=== PATIENT | female | born 1960 | race Caucasian/White ===

== ENCOUNTER 2021-06-18 02:33 | Emergency (ER) | payer MEDICARE, SELFPAY ==
[2021-06-18 02:39] VITALS: BP 199/132; PULSE 80; RESP 18; TEMP 36.1; O2SAT 93; BMI 18.1
--- NOTE | 2021-06-18 02:53 | CTR_ITS ---
PROCEDURE INFORMATION: Exam: CT Abdomen And Pelvis With Contrast Exam date and time: 06/18/2021 2:53 AM Age: 60 years old Clinical indication: Abdominal pain; Generalized; Patient HX: PT C/O abd and back pain. PT very hard of hearing to point of deafness. Breathing instructions explained as best as possible. ; Additional info: Abd pain TECHNIQUE: Imaging protocol: Computed tomography of the abdomen and pelvis with contrast. Radiation optimization: All CT scans at this facility use at least one of these dose optimization techniques: automated exposure control; mA and/or kV adjustment per patient size (includes targeted exams where dose is matched to clinical indication); or iterative reconstruction. Contrast material: VISI 320; Contrast volume: 75 ml; Contrast route: INTRAVENOUS (IV); COMPARISON: US Renal Kidney Structu* [id number] 01/20/2019 9:36 AM RADIATION DOSE METRICS: Total DLP (mGy-cm): 164.6 FINDINGS: Liver: Normal. No mass. Gallbladder and bile ducts: Normal. No calcified stones. No ductal dilation. Pancreas: Normal. No ductal dilation. Spleen: Normal. No splenomegaly. Adrenal glands: Normal. No mass. Kidneys and ureters: There is a 1.5 cm hypoattenuation cystic lesions seen posterior aspect of left kidney compatible a simple cyst. Stomach and bowel: Unremarkable. No obstruction. No mucosal thickening. Appendix: No evidence of appendicitis. Intraperitoneal space: Unremarkable. No free air. No significant fluid collection. Vasculature: Unremarkable. No abdominal aortic aneurysm. Lymph nodes: Unremarkable. No enlarged lymph nodes. Urinary bladder: Unremarkable as visualized. Reproductive: Unremarkable as visualized. Bones/joints: Unremarkable. No acute fracture. Soft tissues: Unremarkable. CT/CT abdomen pelvis w con* [id number] IMPRESSION: 1. There are no acute abdominal findings. 2. Benign 1.5 cm left renal cyst. No further workup needed. COMMENTS: Consistent with the [employer]'s Incidental Findings Committee white paper (J Am Sobeida Radiol 2018): Any incidental renal lesion less than 1 cm or classified as too small to characterize, or any incidental cystic renal lesion characterized as simple-appearing, is likely benign. No follow-up imaging is recommended for these lesions per consensus recommendations based on imaging criteria. Radiation Dose CTDIVOL = (mGy): DLP = 164.6 (mGy-cm)
--- NOTE | 2021-06-18 02:58 | W.ED.BACK ---
HPI - Back Pain/Injury General: Chief Complaint: Back Pain/Injury Stated Complaint: back pain Time Seen by Provider: 06/18/21 02:34 Source: patient Mode of arrival: ambulatory Limitations: no limitations History of Present Illness: HPI Narrative: 60-year-old female states she has had back pain over the last 9 to 10 days. States that her this point tender in her right thoracic region is made worse with bending and twisting. She states that it does radiate to her abdomen at times. She is quite hypertensive here. She states that she has not seen a physician in over 20 years and never takes her blood pressure and thinks that her blood pressure is likely chronically elevated. She denies any chest pain denies any vomiting or diarrhea. Associated symptoms: Deny abdominal pain, chills, dysuria, fever(s), nausea or vomiting Review of Systems Const: Denies: fever(s), chills, body aches or change in appetite Eyes: Denies: blurry vision or eye discomfort ENMT: Denies: throat pain or dental pain Card: Denies: chest pain Resp: Denies: dyspnea GI: Denies: abdominal pain, nausea, vomiting or diarrhea : Denies: dysuria Musc: Reports: back pain Skin/Breast: Denies: rash Neuro: Denies: headache(s) Psych: Denies: depression Adria/Lymph: Denies: easy bruising All/Imm: Denies: urticaria PFSH ED PFSH: Social History Second hand smoke exposure: No Smoking risk assessment/counseling performed?: Yes Alcohol intake: never Desire information about alcohol rehabilitation?: No Counseling given: No Desire information about substance/drug rehabilitation?: No Counseling given: No Adopted: No Caregiver/support person: No Lives independently: Yes Housing: House Marital status: Number of children: 2 Highest education level completed: High School Graduate service: No Current occupational status: disabled Physical Exam Const: COMMON NORMALS: no acute distress, patient oriented x3 and healthy appearing HENMT: COMMON NORMALS: normocephalic and atraumatic HEAD & SCALP: normocephalic and atraumatic Eye: COMMON NORMALS: Equal, round and reactive pupils present and EOMs intact bilaterally PUPIL: Yes Equal, round and reactive pupils present Neck/C-Spine: COMMON NORMALS: full ROM and supple Chest: COMMONS NORMALS: normal inspection of the chest and normal palpation of entire chest wall Resp: COMMON NORMALS: normal respiratory effort, No retractions, No use of accessory muscles and clear to auscultation bilaterally AUSCULTATION: clear to auscultation bilaterally Cardio: COMMON NORMALS: regular rate, regular rhythm and No murmurs present (Cardio) RATE: regular rate RHYTHM: regular rhythm GI: COMMON NORMALS: Normal to inspection, nondistended, normoactive bowel sounds present, Soft to palpation, non-tender and no masses PALPATION: Yes Soft to palpation Back/Pelvis: OTHER: tenderness over right thoracic region Extremity: COMMON NORMALS: normal to inspection and full ROM Neuro: COMMON NORMALS: patient oriented x3, moves all extremities and no focal motor deficits Psych: COMMON NORMALS: mental status grossly normal, Normal thought process present and cooperative THOUGHT PROCESS: Normal thought process present Skin: COMMON NORMALS: no rashes or lesions noted and no wounds GENERAL SKIN EXAM: no rashes or lesions noted Course Vital Signs: Vital signs: Vital Signs Temperature 97.0 F L 06/18/21 02:39 Pulse Rate 70 06/18/21 04:25 Respiratory Rate 16 06/18/21 04:25 Blood Pressure 189/123 06/18/21 04:25 Pulse Oximetry 93 06/18/21 04:25 MDM - Back Pain/Injury MDM Narrative: Medical decision making narrative: Patient presents here with back pain is likely muscular in nature. She is point tender thoracic region. Her blood work and abdominal CT here normal with no signs of intra-abdominal abnormality. She does have hypertension is likely chronic in nature and will start her on amlodipine. She is stable for discharge. She is to follow-up with PCP and return if worsening. Lab Data: Labs: Lab Results 06/18/21 06/18/21 Range/Units 03:15 03:15 WBC 9.3 (4.0-10.0) 10^3/ uL RBC 4.95 (4.1-5.3) 10^6/u L Hgb 14.4 (11.5-15.3) g/dL Hct 44.4 (37.0-47.0) % MCV 89.7 (81-99) fl MCH 29.1 (28.0-34.0) pg MCHC 32.4 (30.0-36.0) g/dL RDW 12.5 (12.1-15.1) % Plt Count 282 (130-400) 10^3/c mm MPV 10.3 (7.4-10.4) fL Neut % (Auto) 65.2 % Lymph % (Auto) 21.5 % [place] % (Auto) 8.3 % Eos % (Auto) 4.1 % Baso % (Auto) 0.5 % Neut # (Auto) 6.04 (1.8-7.7) 10^3/u L Lymph # (Auto) 2.0 (0.8-4.8) 10^3/u L [place] # (Auto) 0.8 (0.2-0.9) 10^3/u L Eos # (Auto) 0.4 (0.0-0.8) 10^3/u L Baso # (Auto) 0.1 (0.0-0.1) 10^3/u L Nucleated RBC % (a uto) 0 % Nucleated RBCs # 0.0 /100WBC Sodium 134 L (136-145) mmol/L Potassium 3.9 (3.5-5.1) mmol/L Chloride 96 L (98-107) mmol/L Carbon Dioxide 29 (22-29) mmol/L Anion Gap 12.9 (5-19) BUN 12 (8-23) mg/dL Creatinine 0.6 (0.5-0.9) mg/dL GFR Calculation 101.6 (90-130) mL/min Glucose 113 (65-115) mg/dL Calculated Osmolal ity 279 L (285-295) mOsm/k g Calcium 9.3 (8.5-10.5) mg/dL Total Bilirubin 0.3 (0.15-1.2) mg/dL AST 10 (0-32) U/L ALT 10 (0-33) U/L Alkaline Phosphata se 70 (35-105) IU/L Total Protein 6.3 L (6.6-8.7) g/dL Albumin 4.0 (3.5-5.2) g/dL Globulin 2.3 (1.3-4.6) g/dL Lipase 23 (13-60) U/L Imaging Data^: CT Abd/Pel: Attestation: I personally reviewed and interpreted this imaging study as follows: Radiologist's impression: [facility] [address] [place] [address] CT Scan Report Signed Patient: Shanti Santoyo Unit #: [id number] : 1960 Age/Sex: 60 / F ADM Date: 06/18/21 Loc: ER Room/Bed: Attending Dr: Ordering Provider/Ordering MD: rBandie Ren MD Date of Service: 06/18/21 Procedure(s): CT abdomen pelvis w con* [id number] Accession Number(s): [id number] Report Number: [id number] PROCEDURE INFORMATION: Exam: CT Abdomen And Pelvis With Contrast Exam date and time: 06/18/2021 2:53 AM Age: 60 years old Clinical indication: Abdominal pain; Generalized; Patient HX: PT C/O abd and back pain. PT very hard of hearing to point of deafness. Breathing instructions explained as best as possible. ; Additional info: Abd pain TECHNIQUE: Imaging protocol: Computed tomography of the abdomen and pelvis with contrast. Radiation optimization: All CT scans at this facility use at least one of these dose optimization techniques: automated exposure control; mA and/or kV adjustment per patient size (includes targeted exams where dose is matched to clinical indication); or iterative reconstruction. Contrast material: VISI 320; Contrast volume: 75 ml; Contrast route: INTRAVENOUS (IV); COMPARISON: US Renal Kidney Structu* [id number] 01/20/2019 9:36 AM RADIATION DOSE METRICS: Total DLP (mGy-cm): 164.6 FINDINGS: Liver: Normal. No mass. Gallbladder and bile ducts: Normal. No calcified stones. No ductal dilation. Pancreas: Normal. No ductal dilation. Spleen: Normal. No splenomegaly. Adrenal glands: Normal. No mass. Kidneys and ureters: There is a 1.5 cm hypoattenuation cystic lesions seen posterior aspect of left kidney compatible a simple cyst. Stomach and bowel: Unremarkable. No obstruction. No mucosal thickening. Appendix: No evidence of appendicitis. Intraperitoneal space: Unremarkable. No free air. No significant fluid collection. Vasculature: Unremarkable. No abdominal aortic aneurysm. Lymph nodes: Unremarkable. No enlarged lymph nodes. Urinary bladder: Unremarkable as visualized. Reproductive: Unremarkable as visualized. Bones/joints: Unremarkable. No acute fracture. Soft tissues: Unremarkable. CT/CT abdomen pelvis w con* [id number] IMPRESSION: 1. There are no acute abdominal findings. 2. Benign 1.5 cm left renal cyst. No further workup needed. COMMENTS: Consistent with the [employer]'s Incidental Findings Committee white paper (J Am Sobeida Radiol 2018): Any incidental renal lesion less than 1 cm or classified as too small to characterize, or any incidental cystic renal lesion characterized as simple-appearing, is likely benign. No follow-up imaging is recommended for these lesions per consensus recommendations based on imaging criteria. Radiation Dose CTDIVOL = (mGy): DLP = 164.6 (mGy-cm) Dictated By: Omero Walls MD Signed By: Omero Walls MD Signed Date/Time: 06/18/21444 DD/ 2 EKG Data^: EKG 1: Attestation: I personally reviewed and interpreted this EKG as follows: EKG interpretation date: 06/18/21 EKG interpretation time: 03:07 Interpretation: nsr hr [address] or t wave abnormalities qrs 101 qtc 376 Discharge Plan Discharge Patient Disposition: Home Clinical Impression: Hypertension Thoracic back pain Qualifiers: Chronicity: acute Back pain laterality: right Qualified Code(s): M54.6 - Pain in thoracic spine Condition: Stable Prescriptions: New amlodipine 5 mg tablet 5 mg PO BID Qty: 60 RF: 0 methocarbamol 750 mg tablet 750 mg PO Q6H PRN (Reason: spasms) Qty: 20 RF: 0 Naprosyn 500 mg tablet 500 mg PO BID PRN (Reason: pain) Qty: 20 RF: 0 No Action aspirin 81 mg tablet,delayed release (DR/EC) 81 mg PO DAILY RF: 0 doxycycline hyclate 100 mg capsule 100 mg PO BID 7 Days Qty: 14 RF: 0 prednisone 20 mg tablet 20 mg PO BID 5 Days Qty: 10 RF: 0 albuterol sulfate [ProAir HFA] 90 mcg/actuation HFA aerosol inhaler 2 puff inhalation QID PRN (Reason: shortness of breath or wheezing) Qty: 6.7 RF: 0 Discharge Orders: Discharge ED (Routine); Ordered 06/18/21 Ordered By: Korby Mikal Referrals: Katelin Bowman FNP-C [Primary Care Provider] - 1-3 days Discharge Diet: Advance as tolerated Discharge Activity: Resume usual activity Patient Instructions: Hypertension (ED), Back Pain (ED) Coding Level of Care Code ED Internet Sales Consultant for Chg Fwd Exam Comprehensive
[2021-06-18] MEDS: labetalol 5 mg/mL SDV 20mL 10 MG IVP (03:01)
--- NOTE | 2021-06-18 03:01 | ECG_ITS ---
[facility] Test Date: 2021-06-18 Pat Name: Shanti Santoyo Department: Room: Gender: Female Material Checker: : 1960 Requested By: Brandie Ren Order Number: [id number] Chani MD: Haseeb Slaughter M.D. Measurements Intervals [place] Rate: 67 P: 79 IL: 148 QRS: 66 QRSD: 101 T: 69 QT: 360 QTc: 382 Interpretive Statements SINUS RHYTHM POSSIBLE RIGHT ATRIAL ENLARGEMENT [0.25mV P-WAVE] NONSPECIFIC T-WAVE ABNORMALITY No previous ECG available for comparison Electronically Signed On 06-18-2021 16:12:53 CDT by Haseeb Slaughter M.D. [id number] f
[2021-06-18 03:08] VITALS: BP 150/108; PULSE 92; RESP 16; O2SAT 94
[2021-06-18 03:21] LABS: Basophils # 0.1 10^3/uL (0.0-0.1); Basophils % 0.5 %; Eosinophils # 0.4 10^3/uL (0.0-0.8); Eosinophils % 4.1 %; Hematocrit 44.4 % (37.0-47.0); Hemoglobin 14.4 g/dL (11.5-15.3); Lymphocytes % 21.5 %; Mean Corpuscular HGB Conc 32.4 g/dL (30.0-36.0); Mean Corpuscular Hemoglobin 29.1 pg (28.0-34.0); Mean Corpuscular Volume 89.7 fl (81-99); Mean Platelet Volume 10.3 fL (7.4-10.4); Monocytes # 0.8 10^3/uL (0.2-0.9); Monocytes % 8.3 %; Neutrophils # 6.04 10^3/uL (1.8-7.7); Neutrophils % 65.2 %; Nucleated Red Blood Cells % 0 %; Platelet Count 282 10^3/cmm (130-400); Red Blood Count 4.95 10^6/uL (4.1-5.3); Red Cell Distribution Width 12.5 % (12.1-15.1); White Blood Count 9.3 10^3/uL (4.0-10.0)
[2021-06-18 03:46] LABS: Alanine Aminotransferase 10 U/L (0-33); Alkaline Phosphatase 70 IU/L (35-105); Anion Gap 12.9 (5-19); Aspartate Amino Transferase 10 U/L (0-32); Blood Urea Nitrogen 12 mg/dL (8-23); Calcium 9.3 mg/dL (8.5-10.5); Carbon Dioxide 29 mmol/L (22-29); Chloride 96 mmol/L (98-107); Globulin 2.3 g/dL (1.3-4.6); Glomerular Filtration Rate 101.6 mL/min (90-130); Glucose 113 mg/dL (65-115); Lipase 23 U/L (13-60); Osmolality Calculated 279 mOsm/kg (285-295); Potassium 3.9 mmol/L (3.5-5.1); Sodium 134 mmol/L (136-145); Total Bilirubin 0.3 mg/dL (0.15-1.2); Total Protein 6.3 g/dL (6.6-8.7)
[2021-06-18] MEDS: iodixanol 320 mg/mL 100mL Btl IV (04:20)
[2021-06-18 04:25] VITALS: BP 189/123; PULSE 70; RESP 16; O2SAT 93
[2021-06-18] MEDS: hyDRALAzine 20 mg/mL INJ 1 mL 10 MG IVP (04:47)
[2021-06-18 05:07] VITALS: BP 157/100; PULSE 74; RESP 18; O2SAT 94
== END 2021-06-18 05:08 | disposition home or self-care (01) ==
PROVIDERS: Emergency Provider Emergency Medicine; PCP Nurse Practitioner Family
DX: M54.6 Pain in thoracic spine (principal); I10 Essential (primary) hypertension; Z79.82 Long term (current) use of aspirin; Z77.22 Contact with and (suspected) exposure to environmental tobacco smoke (acute) (chronic)
CPT/HCPCS: 74177; 80053; 83690; 85025; 93005; 96374; 96375; 99283; J0360; J3490; Q9967

== ENCOUNTER 2023-03-04 00:33 | Emergency (ER) | payer MEDICARE, MEDICAID, SELFPAY ==
[2023-03-04 00:36] VITALS: BP 175/106; PULSE 72; RESP 18; TEMP 36.6; O2SAT 86; BMI 19.3
--- NOTE | 2023-03-04 00:44 | ED_ITS ---
HPI - Abdominal Pain General: Chief Complaint: Abdominal Pain Stated Complaint: ABD PAIN Time Seen by Provider: 03/04/23 00:37 Source: EMS Mode of arrival: EMS Limitations: no limitations History of Present Illness: Patient presents to the emergency department today brought by EMS for evaluation treatment of complaints of right-sided abdominal pain. EMS provides most of the history indicating the patient told them that at 9:00 this evening, she developed sudden onset right-sided abdominal pain. She has been urinating and passing stool without difficulty over the last few days. She has not had fevers. Patient was feeling nauseated but, was administered Phenergan by EMS and indicated significant improvement of her discomfort. Patient was found to be in the upper 80s on room air but, oxygen has come up with O2 by nasal cannula. Patient indicated she does still have her gallbladder and does still have an appendix. Review of Systems 2 General: Reports: 10 or more systems reviewed and unremarkable except in HPI and below PFSH ED PFSH: Social History Smoking and tobacco status: current every day smoker Second hand smoke exposure: No Smoking risk assessment/counseling performed?: Yes Alcohol intake: never Desire information about alcohol rehabilitation?: No Counseling given: No Substance/Drug Use: never Desire information about substance/drug rehabilitation?: No Counseling given: No Adopted: No Caregiver/support person: No Lives independently: Yes Housing: House Marital status: Number of children: 2 Highest education level completed: High School Graduate service: No Current occupational status: disabled Physical Exam 2 Const: COMMON NORMALS: no acute distress, patient oriented x3 and alert HENMT: COMMON NORMALS: normocephalic, atraumatic and moist oral mucous membranes HEAD & SCALP: normocephalic and atraumatic OTHER: Patient is hard of hearing. Eye: COMMON NORMALS: Equal, round and reactive pupils present, EOMs intact bilaterally and conjunctivae normal CONJUNCTIVA: Yes conjunctivae normal PUPIL: Yes Equal, round and reactive pupils present Neck/C-Spine: COMMON NORMALS: full ROM and no JVD Lymph: LYMPHATIC: no lymphadenopathy noted Resp: COMMON NORMALS: normal respiratory effort, No retractions, No use of accessory muscles and clear to auscultation bilaterally AUSCULTATION: clear to auscultation bilaterally Cardio: COMMON NORMALS: no JVD, regular rate and regular rhythm RATE: regular rate RHYTHM: regular rhythm GI: OTHER: Diminished bowel sounds throughout. Patient abdomen is soft. No specific tenderness on palpation but, patient can indicate point specific area to the right lateral region of her abdomen as tender. : COMMON NORMALS: Yes no CVA tenderness BLADDER/KIDNEY EXAM: Yes no CVA tenderness Back/Pelvis: COMMON NORMALS: no CVA tenderness, no thoracic nor lumbar tenderness and thoraco-lumbar ROM normal Extremity: COMMON NORMALS: normal to inspection, full ROM and capillary refill normal Neuro: COMMON NORMALS: patient oriented x3 SENSORIUM/ORIENTATION: Yes alert Psych: COMMON NORMALS: mental status grossly normal, Normal thought process present, cooperative, normal affect and activity/motor behavior normal THOUGHT PROCESS: Normal thought process present Skin: COMMON NORMALS: no rashes or lesions noted and no wounds GENERAL SKIN EXAM: no rashes or lesions noted Course Vital Signs: Vital signs: Vital Signs Temperature 97.8 F 03/04/23 00:36 Pulse Rate 67 03/04/23 01:07 Respiratory Rate 16 03/04/23 01:37 Blood Pressure 166/94 03/04/23 01:37 Pulse Oximetry 97 03/04/23 01:37 Oxygen Delivery Me thod Nasal Cannula 03/04/23 01:37 Oxygen Flow Rate 3 03/04/23 01:37 MDM - Abdominal Pain Medical Decision Making Patient presents to the emergency department today brought by EMS for concerns of right-sided abdominal pain which seem to start rather suddenly this evening. Patient has not had any vomiting but has had nausea which she indicated Phenergan from EMS had helped the nausea. She has not been febrile and denies diarrhea. She has not had any issues with urination. Patient's lab evaluation revealed no signs of an elevated white blood cell count. Patient seems well- hydrated and urinalysis reveals no signs of infection. Due to this negative work-up I did proceed on with the basic KUB which indicated a large accumulation of stool on the right ascending colon. I discussed this finding with the patient and her son and explained I have prescribed MiraLAX to help facilitate passing of this stool burden. Patient should notice improvement after passing stool. However, patient continues to have pain, vomiting, or any signs of new onset fever, she is to be seen and reevaluated. Both patient and son verbalized understanding and agreement to treatment plan. Differential Diagnosis Likely abdominal pain, acute appendicitis, calculus of kidney, constipation, diverticulitis, gastroenteritis and small bowel obstruction Lab Data 03/04/23 00:42 06 00:42 Labs/Radiology: Laboratory Results WBC 8.9 10^3/uL (4.0-10.0) 03/04/23 00:42 RBC 4.89 10^6/uL (4.1-5.3) 03/04/23 00:42 Hgb 13.9 g/dL (11.5-15.3) 03/04/23 00:42 Hct 44.7 % (37.0-47.0) 03/04/23 00:42 MCV 91.4 fl (81-99) 03/04/23 00:42 MCH 28.4 pg (28.0-34.0) 03/04/23 00:42 MCHC 31.1 g/dL (30.0-36.0) 03/04/23 00:42 RDW 12.3 % (12.1-15.1) 03/04/23 00:42 Plt Count 241 10^3/cmm (130-400) 03/04/23 00:42 MPV 10.5 fL (7.4-10.4) H 03/04/23 00:42 Neut % (Auto) 71.1 % 03/04/23 00:42 Lymph % (Auto) 17.7 % 03/04/23 00:42 [place] % (Auto) 7.6 % 03/04/23 00:42 Eos % (Auto) 2.8 % 03/04/23 00:42 Baso % (Auto) 0.6 % 03/04/23 00:42 Neut # (Auto) 6.31 10^3/uL (1.8-7.7) 03/04/23 00:42 Lymph # (Auto) 1.6 10^3/uL (0.8-4.8) 03/04/23 00:42 [place] # (Auto) 0.7 10^3/uL (0.2-0.9) 03/04/23 00:42 Eos # (Auto) 0.3 10^3/uL (0.0-0.8) 03/04/23 00:42 Baso # (Auto) 0.1 10^3/uL (0.0-0.1) 03/04/23 00:42 Nucleated RBC % (auto) 0 % 03/04/23 00:42 Nucleated RBCs # 0.0 /100WBC 03/04/23 00:42 ESR 12 mm/hr (0-15) 03/04/23 00:42 Sodium 140 mmol/L (136-145) 03/04/23 00:42 Potassium 3.7 mmol/L (3.5-5.1) 03/04/23 00:42 Chloride 99 mmol/L (98-107) 03/04/23 00:42 Carbon Dioxide 32 mmol/L (22-29) H 03/04/23 00:42 Anion Gap 12.7 (5-19) 03/04/23 00:42 BUN 16 mg/dL (8-23) 03/04/23 00:42 Creatinine 0.4 mg/dL (0.5-0.9) L 03/04/23 00:42 GFR Calculation 161.2 mL/min (90-130) H 03/04/23 00:42 Glucose 103 mg/dL (65-115) 03/04/23 00:42 Calculated Osmolality 291 mOsm/kg (285-295) 03/04/23 00:42 Calcium 9.0 mg/dL (8.5-10.5) 03/04/23 00:42 Total Bilirubin 0.3 mg/dL (0.15-1.2) 03/04/23 00:42 AST 14 U/L (0-32) 03/04/23 00:42 ALT 9 U/L (0-33) 03/04/23 00:42 Alkaline Phosphatase 61 U/L (35-105) 03/04/23 00:42 C-Reactive Protein 6.4 mg/L (0.0-4.9) H 03/04/23 00:42 Total Protein 6.9 g/dL (6.6-8.7) 03/04/23 00:42 Albumin 4.2 g/dL (3.5-5.2) 03/04/23 00:42 Globulin 2.7 g/dL (1.3-4.6) 03/04/23 00:42 Lipase 20 U/L (13-60) 03/04/23 00:42 Urine Color Yellow (Yellow) 03/04/23 01:15 Urine Appearance Clear (CLEAR) 03/04/23 01:15 Urine pH 8 (5-7) H 03/04/23 01:15 Ur Specific [place] 1.010 (1.005-1.030) 03/04/23 01:15 Urine Protein Neg (Negative) 03/04/23 01:15 Urine Glucose (UA) Norm (Normal) 03/04/23 01:15 Urine Ketones Negative (Negative) 03/04/23 01:15 Urine Blood Neg (Negative) 03/04/23 01:15 Urine Nitrate Negative (Negative) 03/04/23 01:15 Urine Bilirubin Neg (Negative) 03/04/23 01:15 Prot Sulfosalicylic Acd Negative (Negative) 03/04/23 01:15 Urine Urobilinogen Norm mg/dL (Negative) 03/04/23 01:15 Ur Leukocyte Esterase Negative (Negative) 03/04/23 01:15 Discharge Plan Discharge Patient Disposition: Home Clinical Impression: Constipation Condition: Stable Prescriptions: New Miralax 17 gram/dose powder 17 g PO DAILY Qty: 238 0RF No Action aspirin 81 mg tablet,delayed release (DR/EC) 81 mg PO DAILY albuterol sulfate [ProAir HFA] 90 mcg/actuation HFA aerosol inhaler 2 puff inhalation QID PRN (Reason: shortness of breath or wheezing) Qty: 6.7 0RF amoxicillin 875 mg tablet 875 mg PO BID Qty: 20 0RF fluoxetine 10 mg capsule 10 mg PO DAILY Qty: 30 5RF amlodipine 5 mg tablet 5 mg PO BID Qty: 60 0RF methocarbamol 750 mg tablet 750 mg PO Q6H PRN (Reason: spasms) Qty: 20 0RF Naprosyn 500 mg tablet 500 mg PO BID PRN (Reason: pain) Qty: 20 0RF Discharge Orders: Discharge ED (Routine); Ordered 03/04/23 Ordered By: Tara Barraza Referrals: Katelin Bowman FNP-C [Primary Care Provider] - Discharge Diet: As Directed Discharge Activity: Increase activity as tolerated Patient Instructions: Constipation (ED), High Fiber Diet (ED) Activity Restrictions/Additional Instructions: Lab work today showed no acute concerns for signs of an abdominal infection. You show no signs of any urinary infection and no other acute cause for concern today. The x-ray in your abdomen confirms a large amount of stool in the right side of your colon. This accumulation of stool can often cause a lot of pain- especially if there is gas trapped in the area as well. I have prescribed you some MiraLAX which I would like you to start taking at least 1-2 doses daily until you are able to have bowel movements and relief of your abdominal dis comfort. Increase your clear fluid intake during this time as well. Follow-up with your primary care doctor next week for recheck. Return to the emergency department if you develop fevers, vomiting without ability to tolerate fluid or medications. Coding Level of Care Code ED Drapery Inspector for Sergey Green
[2023-03-04 00:51] LABS: Basophils # 0.1 10^3/uL (0.0-0.1); Basophils % 0.6 %; Eosinophils # 0.3 10^3/uL (0.0-0.8); Eosinophils % 2.8 %; Hematocrit 44.7 % (37.0-47.0); Hemoglobin 13.9 g/dL (11.5-15.3); Lymphocytes # 1.6 10^3/uL (0.8-4.8); Lymphocytes % 17.7 %; Mean Corpuscular HGB Conc 31.1 g/dL (30.0-36.0); Mean Corpuscular Hemoglobin 28.4 pg (28.0-34.0); Mean Corpuscular Volume 91.4 fl (81-99); Mean Platelet Volume 10.5 fL (7.4-10.4); Monocytes # 0.7 10^3/uL (0.2-0.9); Monocytes % 7.6 %; Neutrophils # 6.31 10^3/uL (1.8-7.7); Neutrophils % 71.1 %; Nucleated Red Blood Cells % 0 %; Platelet Count 241 10^3/cmm (130-400); Red Blood Count 4.89 10^6/uL (4.1-5.3); Red Cell Distribution Width 12.3 % (12.1-15.1); White Blood Count 8.9 10^3/uL (4.0-10.0)
[2023-03-04 00:53] LABS: Erythrocyte Sedimentation Rate 12 mm/hr (0-15)
[2023-03-04 01:04] LABS: Alanine Aminotransferase 9 U/L (0-33); Albumin Level 4.2 g/dL (3.5-5.2); Alkaline Phosphatase 61 U/L (35-105); Anion Gap 12.7 (5-19); Aspartate Amino Transferase 14 U/L (0-32); Blood Urea Nitrogen 16 mg/dL (8-23); C Reactive Protein 6.4 mg/L (0.0-4.9); Carbon Dioxide 32 mmol/L (22-29); Chloride 99 mmol/L (98-107); Globulin 2.7 g/dL (1.3-4.6); Glomerular Filtration Rate 161.2 mL/min (90-130); Glucose 103 mg/dL (65-115); Lipase 20 U/L (13-60); Osmolality Calculated 291 mOsm/kg (285-295); Potassium 3.7 mmol/L (3.5-5.1); Sodium 140 mmol/L (136-145); Total Bilirubin 0.3 mg/dL (0.15-1.2); Total Protein 6.9 g/dL (6.6-8.7)
[2023-03-04 01:07] VITALS: BP 169/90; PULSE 67; RESP 16; O2SAT 97
[2023-03-04 01:23] LABS: Add Urine Microscopic? NO; Charge for UA Resulting for Rev
[2023-03-04 01:28] LABS: Bilirubin Urine Neg (Negative); Blood Urine Neg (Negative); Glucose Urine UA Norm (Normal); Ketones Urine Negative (Negative); Leukocyte Esterase Urine Negative (Negative); Nitrate Urine Negative (Negative); Protein Urine Neg (Negative); Sulfosalicylic Acid Urine Negative (Negative); Urine Appearance Clear (CLEAR); Urine Color Yellow (Yellow); Urobilinogen Urine Norm (Negative); pH Urine 8 (5-7)
--- NOTE | 2023-03-04 01:34 | XRR_ITS ---
PROCEDURE INFORMATION: Exam: XR Abdomen Exam date and time: 03/04/2023 1:40 AM Age: 62 years old Clinical indication: Abdominal pain; Localized; Right; Patient HX: RT sided abd pain; Additional info: RT abdominal pain, no fever, no wbc, no UTI TECHNIQUE: Imaging protocol: Radiologic exam of the abdomen. Views: Frontal supine view of the abdomen. 1 View. Total images: 217 COMPARISON: CT abdomen pelvis w con* [id number] 06/18/2021 3:54 AM FINDINGS: Gastrointestinal tract: Bowel gas pattern is nondistended and nonobstructive. Bones/joints: Unremarkable. Other findings: Moderate stool burden. XR/XR KUB [id number] IMPRESSION: 1. Normal bowel gas pattern 2. Moderate stool burden.
[2023-03-04 01:37] VITALS: BP 166/94; RESP 16; O2SAT 97
[2023-03-04 02:19] VITALS: BP 166/94; PULSE 71; RESP 16; TEMP 36.6; O2SAT 97
== END 2023-03-04 02:20 | disposition home or self-care (01) ==
PROVIDERS: Emergency Provider Physician Assistant; PCP Nurse Practitioner Family
DX: K59.00 Constipation, unspecified (principal)
CPT/HCPCS: 74018; 80053; 81003; 83690; 85025; 85651; 86140; 99284

== ENCOUNTER → 2023-03-21 14:30 | Outpatient (BNVA) | payer MEDICARE, MEDICAID, SELFPAY | PROVIDERS: PCP Nurse Practitioner Family; Visit Provider Nurse Practitioner Family | DX: K59.00 Constipation, unspecified (principal); J44.9 Chronic obstructive pulmonary disease, unspecified; Z13.6 Encounter for screening for cardiovascular disorders; F41.9 Anxiety disorder, unspecified; F32.A Depression, unspecified; R30.0 Dysuria; Z79.899 Other long term (current) drug therapy | CPT/HCPCS: 71046; 74018; 80053; 80061; 81003; 84443; 85025 ==

== ENCOUNTER → 2023-06-21 13:20 | Outpatient (BNVA) | payer MEDICARE, MEDICAID, SELFPAY | PROVIDERS: PCP Nurse Practitioner Family; Visit Provider Nurse Practitioner Family | DX: J44.9 Chronic obstructive pulmonary disease, unspecified (principal); F41.9 Anxiety disorder, unspecified; F32.A Depression, unspecified; K59.00 Constipation, unspecified; H91.90 Unspecified hearing loss, unspecified ear; F17.200 Nicotine dependence, unspecified, uncomplicated; R32 Unspecified urinary incontinence; R03.0 Elevated blood-pressure reading, without diagnosis of hypertension | CPT/HCPCS: 80053; 85025 ==

== ENCOUNTER → 2023-07-09 09:39 | Outpatient (BNVA) | payer MEDICARE, MEDICAID, SELFPAY | PROVIDERS: PCP Nurse Practitioner Family; Visit Provider Otolaryngology | DX: H93.13 Tinnitus, bilateral; H61.21 Impacted cerumen, right ear | CPT/HCPCS: 69210; 99203 ==

== ENCOUNTER → 2023-10-02 13:00 | Outpatient (BNVA) | payer MEDICARE, SELFPAY | PROVIDERS: PCP Nurse Practitioner Family; Visit Provider Nurse Practitioner Family | DX: J44.9 Chronic obstructive pulmonary disease, unspecified (principal); H91.93 Unspecified hearing loss, bilateral; F41.9 Anxiety disorder, unspecified; F32.A Depression, unspecified; Z86.59 Personal history of other mental and behavioral disorders; Z13.6 Encounter for screening for cardiovascular disorders; K13.70 Unspecified lesions of oral mucosa; J44.1 Chronic obstructive pulmonary disease with (acute) exacerbation | CPT/HCPCS: 80053; 80061; 84443; 85025 ==

== ENCOUNTER → 2023-10-29 13:17 | Outpatient (BNVA) | payer MEDICARE, SELFPAY | PROVIDERS: PCP Nurse Practitioner Family; Visit Provider Nurse Practitioner Family | DX: R73.9 Hyperglycemia, unspecified (principal); E78.5 Hyperlipidemia, unspecified | CPT/HCPCS: 83036 ==

== ENCOUNTER → 2024-01-03 10:43 | Outpatient (BNVA) | payer MEDICARE, SELFPAY | PROVIDERS: PCP Nurse Practitioner Family; Visit Provider Nurse Practitioner Family | DX: J44.1 Chronic obstructive pulmonary disease with (acute) exacerbation (principal); F41.9 Anxiety disorder, unspecified; F32.A Depression, unspecified; E78.5 Hyperlipidemia, unspecified; J44.9 Chronic obstructive pulmonary disease, unspecified; H91.93 Unspecified hearing loss, bilateral | CPT/HCPCS: 80053; 80061; 85025 ==

== ENCOUNTER → 2024-12-15 15:32 | Outpatient (BNVA) | payer MEDICARE, MEDICAID, SELFPAY | PROVIDERS: PCP Nurse Practitioner Family; Visit Provider Nurse Practitioner | DX: E78.2 Mixed hyperlipidemia (principal); E55.9 Vitamin D deficiency, unspecified | CPT/HCPCS: 80053; 80061; 82306 ==

== ENCOUNTER → 2025-07-16 09:01 | Outpatient (BNVA) | payer MEDICARE, MEDICAID, SELFPAY | PROVIDERS: PCP Nurse Practitioner; Visit Provider Clinical Nurse Specialist Adult Health | DX: M19.012 Primary osteoarthritis, left shoulder (principal); M89.8X1 Other specified disorders of bone, shoulder; R93.7 Abnormal findings on diagnostic imaging of other parts of musculoskeletal system | CPT/HCPCS: 73030 ==

== ENCOUNTER → 2025-07-23 14:12 | Outpatient (BNVA) | payer MEDICARE, MEDICAID, SELFPAY | PROVIDERS: PCP Nurse Practitioner; Visit Provider Nurse Practitioner | DX: E55.9 Vitamin D deficiency, unspecified (principal); E78.2 Mixed hyperlipidemia | CPT/HCPCS: 80053; 80061; 82306; 82607; 84443 ==